=== PATIENT | male | born 1990 | race African-American/Black ===

== ENCOUNTER 2017-01-31 13:56 | Emergency (ER) | payer OTHER ==
[~2017-01-31] VITALS: Wt 68.0 kg
[2017-01-31] MEDS ORDERED: ONDANSETRON (ODT) 4 MG TAB ODT STA (15:51)
[2017-01-31] MEDS ORDERED: RANITIDINE 150 MG TAB PO ONE (16:00)
[2017-01-31] MEDS ORDERED: ACET500C5 PO (16:43)
[2017-01-31] MEDS ORDERED: ONDA4TAB14 PO (16:43)
[2017-01-31] MEDS ORDERED: BENZ100C70 PO (16:43)
--- NOTE | 2017-01-31 17:21 | ERD ---
ER Documentation Chief Complaint Date/Time DATE: 01/31/17 TIME: 17:16 Chief Complaint flu like symptoms x 5 days. cough,chills,body aches HPI 26-year-old male patient with no significant past medical history presents the ED complaining of cough, body aches, nausea and slight vomiting that started 5 days ago. Reports that he has a slightly productive cough. States that he has been taking NyQuil with no relief. Patient reports that he has some slight epigastric pain due to the vomiting. Denies any chest pain, wheezing, shortness of breath, constipation, fever, chills. Denies any sick contacts. ROS All systems reviewed and are negative except as per history of present illness. Medications Home Meds Active Scripts Acetaminophen* (Tylophen*) 500 Mg Capsule, 1 CAP PO Q6H Y for PAIN AND OR ELEVATED TEMP, #20 CAP Prov:LEI FINE PA-C 01/31/17 Benzonatate* (Tessalon Perle*) 100 Mg Capsule, 100 MG PO Q8H Y for COUGH, #20 CAP Prov:LEI FINE PA-C 01/31/17 Ondansetron (Ondansetron Odt) 4 Mg Tab.rapdis, 4 MG PO Q6H Y for NAUSEA AND/OR VOMITING, #10 TAB Prov:LEI FINE PA-C 01/31/17 PMhx/Soc Hx Cardiac Disorders: No Physical Exam Vitals Vital Signs Date Time Temp Pulse Resp B/P Pulse Ox O2 Delivery O2 Flow Rate FiO2 01/31/17 14:13 98.5 78 20 123/76 99 Physical Exam Const: [id number], well-nourished. In no acute distress. Head: Atraumatic, normocephalic Eyes: Normal Conjunctiva without injection. No purulent discharge. PERRL. EOMI ENT: Normal external ear. Ear canal without erythema. Tympanic membrane pearly merida without effusion or bulging. Nasal canal clear with normal turbinates. Moist oropharynx without tonsillar exudates. Non-erythematous pharynx. Uvula midline. No drooling. No trismus. Neck: Full range of motion. No meningismus. No cervical lymphadenopathy. Resp: Clear to auscultation bilaterally. No wheezing, rhonchi, rales, or crackles. No accessory muscle use. No retractions. Cardio: Regular rate and rhythm. No murmurs, rubs or gallops. Abd: Soft, non tender, non distended. Normal bowel sounds. No palpable masses. No rebound tenderness. No guarding. Skin: No petechiae or rashes Back: No midline tenderness. No CVA tenderness. Ext: No cyanosis, or edema. Neur: Awake and alert. Psych: Normal Mood and Affect Results 24 hrs Current Medications Medications (Trade) Dose Ordered Sig/Jihan Route PRN Reason Start Time Stop Time Status Last Admin Dose Admin Ondansetron HCl (Zofran Odt) 4 mg ONCE STAT ODT 01/31/17 15:51 01/31/17 15:53 DC 01/31/17 16:04 Ranitidine HCl (Zantac) 150 mg ONCE ONCE PO 01/31/17 16:00 01/31/17 16:01 DC 01/31/17 16:13 Procedures/MDM 26-year-old male patient with no significant past medical history presents to the ED complaining of cough, body aches, chills. Patient is afebrile and nontoxic-appearing. Patient symptoms are likely secondary to viral etiology. Patient likely has influenza-like symptoms. Patient's physical exam include lungs which were clear to auscultation and a normal pulse oximetry. There is a low suspicion for a Wilbert's angina, pneumonia, pneumothorax, cardiac tamponade , peritonsillar abscess, foreign body aspiration, mastoiditis, retropharyngeal abscess, epiglottitis, meningitis, sepsis or other emergent conditions. Discharge medications: Tylenol, Tessalon Perles, Zofran Mother was instructed to bring patient back to the ED for any new or worsening symptoms. They should otherwise follow up with the primary care provider within 1-2 days. The parent's questions were answered at the time of discharge. Parent understood and agreed with discharge management. Departure Diagnosis: Primary Impression: Cough Additional Impression: Body aches Condition: Stable Patient Instructions: Viral Syndrome (Adult) Referrals: COMMUNITY CLINICS YOU HAVE RECEIVED A MEDICAL SCREENING EXAM AND THE RESULTS INDICATE THAT YOU DO NOT HAVE A CONDITION THAT REQUIRES URGENT TREATMENT IN THE EMERGENCY DEPARTMENT. FURTHER EVALUATION AND TREATMENT OF YOUR CONDITION CAN WAIT UNTIL YOU ARE SEEN IN YOUR DOCTORS OFFICE WITHIN THE NEXT 1-2 DAYS. IT IS YOUR RESPONSIBILITY TO MAKE AN APPOINTMENT FOR FOLOW-UP CARE. IF YOU HAVE A PRIMARY DOCTOR --you should call your primary doctor and schedule an appointment IF YOU DO NOT HAVE A PRIMARY DOCTOR YOU CAN CALL OUR PHYSICIAN REFERRAL HOTLINE AT IF YOU CAN NOT AFFORD TO SEE A PHYSICIAN YOU CAN CHOSE FROM THE FOLLOWING [facility] [id number] [facility] [address] [facility] [address] [facility] [address] [facility] [address] [facility]. [facility] [address] [facility] [place]. [facility] YOU HAVE RECEIVED A MEDICAL SCREENING EXAM AND THE RESULTS INDICATE THAT YOU DO NOT HAVE A CONDITION THAT REQUIRES URGENT TREATMENT IN THE EMERGENCY DEPARTMENT. FURTHER EVALUATION AND TREATMENT OF YOUR CONDITION CAN WAIT UNTIL YOU ARE SEEN IN YOUR DOCTORS OFFICE WITHIN THE NEXT 1-2 DAYS. IT IS YOUR RESPONSIBILITY TO MAKE AN APPOINTMENT FOR FOLOW-UP CARE. IF YOU HAVE A PRIMARY DOCTOR --you should call your primary doctor and schedule and appointment IF YOU DO NOT HAVE A PRIMARY DOCTOR YOU CAN CALL OUR PHYSICIAN REFERRAL HOTLINE AT . IF YOU CAN NOT AFFORD TO SEE A PHYSICIAN YOU CAN CHOSE FROM THE FOLLOWING [facility]: [facility] [address] [place] [address] [facility] [address] [place] [address] [facility] [address] [place] [address] [facility] URGENT CARE/SPECIALTIES Additional Instructions: Call your primary care doctor TOMORROW for an appointment during the next 2-3 days.See the doctor sooner or return here if your condition worsens before your appointment time - worsening abdominal pain, vomiting, diarrhea, fever, worsening cough, etc. LEI FINE PA-C Jan 31, 2017 17:21 LEI FINE PA-C Jan 31, 2017 17:21
== END 2017-01-31 22:38 | disposition home or self-care (01) ==
LOC: FTE 13:56
DX: R05 Cough (principal); R10.13 Epigastric pain; R11.10 Vomiting, unspecified
CPT/HCPCS: 99284